=== PATIENT | male | born 1990 | race Caucasian/White ===

== ENCOUNTER 2021-02-27 20:37 | Emergency (ER) | payer SELFPAY ==
[~2021-02-27] VITALS: Ht 175.3 cm; Wt 86.0 kg
[2021-02-27] MEDS ORDERED: NALOXONE 0.4 MG/ML VIAL. ONE (20:44)
[2021-02-27] MEDS ORDERED: ONDANSETRON PF 4 MG/2 ML VIAL. IVP ONE ×2 (20:45→21:30)
[2021-02-27] MEDS ORDERED: IV NORMAL SALINE 1000ML BAG 1,000 ML IV ONE (20:45)
[2021-02-27] MEDS ORDERED: NALOXONE 2 MG/2 ML DISP.SYRIN. IV ONE (21:00)
[2021-02-27 21:16] LABS: ISTAT BE VENOUS 4 mmol/L (0-3); ISTAT HCO3 VEN 32 mmol/L (24-28); ISTAT PCO2 VEN 82 mmHg (41-51); ISTAT PO2 VEN 46 mmHg (20-40); ISTAT SAT O2 VEN 69 %; ISTAT TCO2 VEN 35 mmol/L (21-32)
[2021-02-27] MEDS ORDERED: NALOXONE 0.4 MG/ML VIAL. IV ONE (21:30)
--- NOTE | 2021-02-27 21:34 | RAD ---
EXAM: AP View of the chest DATE: 02/27/2021 9:25 PM INDICATION: Reason: narcan opiate reversal / Spl. Instructions: / History: COMPARISON: No Prior FINDINGS: The heart is not enlarged. Mediastinal and hilar contours are normal. No focal parenchymal airspace opacity. No pleural effusion or pneumothorax. IMPRESSION: 1. No radiographic evidence for acute cardiopulmonary process. Electronically signed by: Scott Ag MD (02/27/2021 9:32 PM) BREA
[2021-02-27 21:37] LABS: BASO % 0 % (0-3); EOS # 0.1 x10^3/uL (0.0-0.7); EOS % 1 % (0-3); HEMATOCRIT 41.5 % (39.0-53.0); HEMOGLOBIN 13.8 g/dL (13.0-17.5); LYMPH # 2.7 x10^3/uL (1.0-4.8); LYMPH % 16 % (24-48); MEAN CORPUSCULAR HEMOGLOBIN 31 pg (25-35); MEAN CORPUSCULAR HGB CONC 33 g/dL (31-37); MEAN CORPUSCULAR VOLUME 94 fL (79-100); MONO % 6 % (0-9); NEUT # 13.2 x10^3/uL (1.8-7.7); NEUT % 77 % (31-73); PLATELET COUNT 265 x10^3/uL (140-400); RED BLOOD COUNT 4.44 x10^6/uL (4.30-5.70); RED CELL DISTRIBUTION WIDTH 13.7 % (11.5-14.5)
[2021-02-27 21:38] LABS: CALCIUM 8.1 mg/dL (8.5-10.1); CREATININE 1.3 mg/dL (0.7-1.3); GFR 65.7; POTASSIUM 3.8 mmol/L (3.5-5.1)
[2021-02-27 22:00] LABS: % EOS 1 % (0-5); % LYMPHS 24 % (24-48); % MONOS 4 % (0-10); % SEGS 71 % (35-66); PLT ESTIMATE ADEQUATE (ADEQUATE)
[2021-02-27 22:01] LABS: TOXIC GRANULATION SLIGHT
--- NOTE | 2021-02-27 23:08 | PHYS DOC ---
Past Medical History Past Surgical History: No Surgical History (JONNIE HO APRN) General Adult EDM: Chief Complaint: OVERDOSE HPI: HPI: Patient is a 30 year old male presents to the emergency department via EMS transport with report from transporting paint booth operator patient had unresponsive episode after IV heroin use at a local concert. It was reported to him eve boone's friends were performing chest compressions when concert paramedics arrived feeling a pulse and stopping CPR but placing a LMA breathing device and assisted with breathing until transporting paint booth operator arrived for assessment. Transporting paint booth operator reports upon arriving to scene, patient was alert and oriented, did not require any further cardiorespiratory support. Transported patient to the emergency department. There was no reversal agent given prior to arrival to the emergency department. Patient reports feeling okay and wishes to be discharged home. Denies nausea, vomiting, diarrhea, chest pains, shortness of breath. Patient denies other physical complaints or physical concerns. (JONNIE HO APRN) Review of Systems: Review of Systems: 14 body systems of review of systems have been reviewed. See HPI for pertinent positives and negative responses, otherwise all other systems are negative, nonpertinent or noncontributory. Constitutional: Negative except as outlined in HPI above. Skin: Negative except as outlined in HPI above. Eyes: Negative except as outlined in HPI above. HENT: Negative except as outlined in HPI above. Respiratory: Negative except as outlined in HPI above. Cardiovascular: Negative except as outlined in HPI above. GI: Negative except as outlined in HPI above. : Negative except as outlined in HPI above. Musculoskeletal: Negative except as outlined in HPI above. Integument: Negative except as outlined in HPI above. Neurologic: Negative except as outlined in HPI above. Endocrine: Negative except as outlined in HPI above. Lymphatic: Negative except as outlined in HPI above. Psychiatric: Negative except as outlined in HPI above. (JONNIE HO APRN) Heart Score: C/O Chest Pain: No Risk Factors: Risk Factors: DM, Current or recent (<one month) smoker, HTN, HLP, family history of CAD, obesity. Risk Scores: Score 0 - 3: 2.5% MACE over next 6 weeks - Discharge Home Score 4 - 6: 20.3% MACE over next 6 weeks - Admit for Clinical Observation Score 7 - 10: 72.7% MACE over next 6 weeks - Early Invasive Strategies (JONNIE HO APRN) Current Medications: Current Medications Medications (Trade) Dose Ordered Sig/Sruthi Start Time Stop Time Status Last Admin Dose Admin Naloxone HCl (NARCAN 2mg SYRINGE) 2 mg 1X ONCE 02/27/21 21:00 02/27/21 21:01 DC Naloxone HCl (Narcan) 0.4 mg 1X ONCE 02/27/21 21:30 02/27/21 21:31 DC 02/27/21 21:16 0.4 MG Ondansetron HCl (Zofran) 4 mg 1X ONCE 02/27/21 21:30 02/27/21 21:31 DC 02/27/21 21:15 4 MG Sodium Chloride 1,000 ml @ 1,000 mls/hr 1X ONCE 02/27/21 20:45 02/27/21 21:44 DC 02/27/21 21:11 1,000 MLS/HR (JONNIE HO APRN) Allergies: Allergies: Allergies Coded Allergies Type Severity Reaction Last Updated Verified No Known Drug Allergies 02/27/21 No (JONNIE HO APRN) Physical Exam: PE: Constitutional: Well developed, well nourished, no acute distress, non-toxic [place]. 30-year-old male in no apparent distress. HENT: Normocephalic, atraumatic. Eyes: Conjunctiva normal, no discharge. Neck: Normal range of motion, no stridor. Cardiovascular: No cyanosis appreciated, distal cap refill less than 2 seconds. Heart sounds are S1-S2 auscultation Lungs & Thorax: Patient is in no respiratory distress, no audible adventitious lung sounds appreciated. Lung sounds clear to auscultation all lung whiteside, patient's O2 sat during examination is 81% on room air, patient's face is pink, he is not hypoxic in appearance, no respiratory distress is appreciated, O2 plac ed by ED nursing staff 6 L per nasal cannula. Abdomen: Nontender, no abnormalities noted. Skin: Warm, dry, no erythema, no rash. Back: No tenderness, no deformities. Extremities: No tenderness, no cyanosis, no clubbing, ROM intact, no edema. Neurologic: Alert and oriented X 3, normal motor function, normal sensory function, no focal deficits noted. Psychologic: Affect normal, judgement normal, mood normal. (JONNIE HO APRN) Current Patient Data: Labs: Laboratory Tests Test 02/27/21 21:00 02/27/21 21:08 White Blood Count 17.0 x10^3/uL (4.0-11.0) H Red Blood Count 4.44 x10^6/uL (4.30-5.70) Hemoglobin 13.8 g/dL (13.0-17.5) Hematocrit 41.5 % (39.0-53.0) Mean Corpuscular Volume 94 fL (79-100) Mean Corpuscular Hemoglobin 31 pg (25-35) Mean Corpuscular Hemoglobin Concent 33 g/dL (31-37) Red Cell Distribution Width 13.7 % (11.5-14.5) Platelet Count 265 x10^3/uL (140-400) Neutrophils (%) (Auto) 77 % (31-73) H Lymphocytes (%) (Auto) 16 % (24-48) L Monocytes (%) (Auto) 6 % (0-9) Eosinophils (%) (Auto) 1 % (0-3) Basophils (%) (Auto) 0 % (0-3) Neutrophils # (Auto) 13.2 x10^3/uL (1.8-7.7) H Lymphocytes # (Auto) 2.7 x10^3/uL (1.0-4.8) Monocytes # (Auto) 1.0 x10^3/uL (0.0-1.1) Eosinophils # (Auto) 0.1 x10^3/uL (0.0-0.7) Basophils # (Auto) 0.0 x10^3/uL (0.0-0.2) Segmented Neutrophils % 71 % (35-66) H Lymphocytes % 24 % (24-48) Monocytes % 4 % (0-10) Eosinophils % 1 % (0-5) Toxic Granulation Slight Platelet Estimate Adequate (ADEQUATE) Sodium Level 140 mmol/L (136-145) Potassium Level 3.8 mmol/L (3.5-5.1) Chloride Level 100 mmol/L (98-107) Carbon Dioxide Level 32 mmol/L (21-32) Anion Gap 8 (6-14) Blood Urea Nitrogen 13 mg/dL (8-26) Creatinine 1.3 mg/dL (0.7-1.3) Estimated GFR (Cockcroft-Gault) 65.7 Glucose Level 171 mg/dL (70-99) H Calcium Level 8.1 mg/dL (8.5-10.1) L Ethyl Alcohol Level < 10 mg/dL (0-10) POC Venous pH 7.20 (7.32-7.42) L POC Venous pCO2 82 mmHg (41-51) H POC Venous pO2 46 mmHg (20-40) H Venous Blood HCO3 32 mmol/L (24-28) H POC Venous O2 Saturation (Hunter) 69 % POC FiO2 21.0 Laboratory Tests 02/27/21 21:00 Laboratory Tests 02/27/21 21:00 Vital Signs: Vital Signs Date Time Temp Pulse Resp B/P (MAP) Pulse Ox O2 Delivery O2 Flow Rate FiO2 02/27/21 21:30 88 16 91 02/27/21 20:37 98.7 230/103 (145) Room Air 98.7 (JONNIE HO APRN) EKG: EKG: [] (JONNIE HO APRN) Radiology/Procedures: Radiology/Procedures: PATIENT: ALYSSA BALBUENA ACCOUNT: [id number] : 1990 LOCATION: ER AGE: 30 SEX: M EXAM STATUS: PRE ER ORD. PHYSICIAN: JONNIE HO APRN REASON: narcan opiate reversal PROCEDURE: CHEST AP ONLY EXAM: AP View of the chest DATE: 02/27/2021 9:25 PM INDICATION: Reason: narcan opiate reversal / Spl. Instructions: / History: COMPARISON: No Prior FINDINGS: The heart is not enlarged. Mediastinal and hilar contours are normal. No focal parenchymal airspace opacity. No pleural effusion or pneumothorax. IMPRESSION: 1. No radiographic evidence for acute cardiopulmonary process. Electronically signed by: Scott Ag MD (02/27/2021 9:32 PM) BREA (JONNIE HO APRN) Course & Med Decision Making: Course & Med Decision Making Pertinent Labs and Imaging studies reviewed. (See chart for details) 22-year-old male, vital signs reviewed, presents emergency department concerning unresponsive episode after using heroin at a local concert just prior to arrival. Patient's physical presentation concerning for hypoxia related to peripheral O2 saturation of 81% on room air. The patient was placed on 6 L per nasal cannula oxygen. Concerns for pulmonary edema or aspiration related to reported unresponsive event, LMA use with assisted respirations, will order chest x-ray, 0.4 mg of Narcan, CBC, BMP, venous blood gas. Chest x-ray Venous blood gas does not indicate hypoxia, CBC and BMP within normal limits, chest x-ray nonconcerning for aspiration pneumonia or pulmonary edema. Patient is currently on 2 L and satting in the upper 80s. Will order additional blood gas to assess oxygenation. Discussed patient case and ED work-up with ED attending physician Dr. Flores who has assumed patient care at this time. Continue to monitor patient (JONNIE HO APRN) Course & Med Decision Making Concern for IV heroin use in left forearm with no signs of infection. I suspect patient was apneic and bystander started CPR. My midlevel initially saw patient and I was informed of hypoxia with hypercapnia. I reassessed patient with at bedside, (patient consents to his/her/their knowledge and involvement in pts' medical care). Patient is speaking in full sentences, is 100% on room air, with no active chest pain, back pain, shortness of breath, hemoptysis or increased work of breathing. Blood gas with no hypoxia. On arrival patient was initially lethargic and hypoxic but able to speak in 1-2 word sentences. Narcan was given- patient with multiple episodes of nausea nonbloody nonbilious vomiting, likely medication adverse effect. Patient is tolerating oral intake, protecting his airway with medical decision-making capacity. Patient with no chest wall discomfort or subcutaneous emphysema. Half-life of Narcan has worn off with no return of apnea. Patient denies any suicidal homicidal ideations, this was an accidental heroin overdose. Patient with no active complaints and has a supportive at bedside. Will discharge home with strict ED return precautions were given for difficulties breathing, chest pain, shortness of breath or syncope. Encouraged urgent outpatient follow-up with PMD and RSI for substance abuse. Life-threatening processes were considered but are low suspicion at this time, given history, physical exam and ED workup. Pt was educated on all prescription medications and adverse effects. All patient's questions were answered and pt was stable at time of discharge. Life/limb-threatening differential includes but is not limited to, end organ damage/sepsis, trauma/abuse/neglect, neurologic deficit, alcohol/drug ingestion, toxidrome, suicidal/homicidal ideations plans or attempts, psychosis or mental illness resulting in self neglect and inability to care for self. I have spoken with the patient and/or caregivers. I explained the patient's condition, diagnoses and treatment plan based on the information available to me at this time. I have answered the patient and/or caregiver's questions and addressed any concerns. The patient and/or caregivers have a good understanding of patient's diagnosis, condition and treatment plan as can be expected at this point. Vital signs have been stable. Patient's condition is stable and appropriate for discharge from the emergency department. Patient will pursue further outpatient evaluation with primary care physician or other designated or consulting physician as outlined in the discharge instructions. The patient and/or caregivers are agreeable to this plan of care and follow-up instructions have been explained in detail. The patient and/or caregivers have received these instructions in written form and have expressed an understanding of the discharge instructions. The patient and/or caregivers are aware that any significant change of condition or worsening of symptoms should prompt immediate return to this or the closest emergency department or call to 911. (SHERRI FLORES DO) Nimishaon Disclaimer: Dragon Disclaimer: This electronic medical record was generated, in whole or in part, using a voice recognition dictation system. (JONNIE HO APRN) Departure Departure Impression: Primary Impression: Heroin use Additional Impression: Apnea Disposition: 01 HOME / SELF CARE / HOMELESS Condition: STABLE Referrals: NON,STAFF (PCP) Follow-up with your primary care physician in 24 to 48 hours OR FOLLOW UP WITH FAMILY MEDICINE: [address] [place] [address] Patient Instructions: Heroin Abuse and Withdrawal, Narcotic Overdose Additional Instructions: [employer]. AND FOR SUBSTANCE ABUSE MANAGEMENT [address] [place] [address] 24-hour crisis line: [phone] EMERGENCY DEPARTMENT GENERAL DISCHARGE INSTRUCTIONS Thank you for coming to [facility] Emergency Department (ED) today and trusting us with you care. We trust that you had a positive experience in our Emergency Department. If you wish to speak to the department management, you may call the Director at [phone]. YOUR FOLLOW UP INSTRUCTIONS ARE FOLLOWS: 1. Do you have a private Doctor? If you do not have a private doctor, please ask for a resource list of physicians or clinics that may be able to assist you with follow up care. 2. The Emergency Physicain has interpreted your x-rays. The X-Ray specialist will also review them. If there is a change in the findings, you will be notified in 48 hours when at all possible. 3. A lab test or culture has been done, your results will be reviewed and you will be notified if you need a change in treatment. ADDITIONAL INSTRUCTIONS AND INFORMATION: 1. Your care today has been supervised by a physician who is specially trained in emergency care. Many problems require more than one evaluation for a complete diagnosis and treatment. We recommend that you schedule your follow up appointment as recommended to ensure complete treatment of you illness or injury. If you are unable to obtain follow up care and continue to have a problem, or if your condition worsens, we recommend that you return to the ED. 2. We are not able to safely determine your condition over the phone nor are we able to give sound medical advice over the phone. For these safety reasons, if you call for medical advice we will ask you to come to the ED for further evaluation. 3. If you have any questions regarding these discharge instructions please call the ED at [phone]. SAFETY INFORMATION: In the interest of safety, wellness, and injury prevention; we encourage you to wear your sealbelt, if you smoke; quite smoking, and we encourage family to use a protective helmet for bicycling and other sporting events that present an increased risk for head injury. IF YOUR SYMPTOMS WORSEN OR NEW SYMPTOMS DEVELOP, OR YOU HAVE CONCERNS ABOUT YOUR CONDITION; OR IF YOUR CONDITION WORSENS WHILE YOU ARE WAITING FOR YOUR FOLLOW UP APPOINTMENT; EITHER CONTACT YOUR PRIMARY CARE DOCTOR, THE PHYSICIAN WHOSE NAME AND NUMBER YOU WERE GIVEN, OR RETURN TO THE ED IMMEDIATELY. JONNIE HO APRN Feb 27, 2021 23:08 SHERRI FLORES DO Feb 28, 2021 00:27
[2021-02-27 23:15] LABS: ISTAT BE VENOUS 6 mmol/L (0-3); ISTAT HCO3 VEN 31 mmol/L (24-28); ISTAT PCO2 VEN 51 mmHg (41-51); ISTAT PH VEN 7.39 (7.32-7.42); ISTAT PO2 VEN 29 mmHg (20-40); ISTAT TCO2 VEN 33 mmol/L (21-32)
[2021-02-27 23:16] LABS: FIO2 VENOUS ISTAT 21; ISTAT SAT O2 VEN 54 %
[2021-02-27] MEDS ORDERED: CONTRAST GIVEN. MC PRN (23:30)
[2021-02-27] MEDS ORDERED: IOHEXOL 350 MG/ML 100 ML VIAL. IV ONE (23:30)
[2021-02-27 23:35] VITALS: BP 148/98
[2021-02-27 23:43] LABS: BASE EXCESS ABG 2 mmol/L (-3-3); HCO3 ABG 25 mmol/L (21-28); PCO2 ABG 35 mmHg (35-46); PO2 ABG 85 mmHg (85-108); SAT O2 ABG 97 % (92-99)
[2021-02-27 23:44] LABS: FIO2 ABG 21
== END 2021-02-28 00:31 | disposition home or self-care (01) ==
LOC: ER 20:37
DX: F11.90 Opioid use, unspecified, uncomplicated (principal); R06.81 Apnea, not elsewhere classified
CPT/HCPCS: 36415; 36600; 71045; 80048; 82803; 82805; 85007; 85025; 96361; 96374; 96375; 96376; 99285; G0480; J2310; J2405; J7030